=== PATIENT | male | born 1990 | race Native Hawaiian/Other Pacific Islander ===

== ENCOUNTER 2019-01-23 10:23 | Day surgery (SDC) | payer OTHER ==
[2019-01-23] MEDS ORDERED: LACTATED RINGERS 1,000 ML IV ONE ×3 (10:28→17:47)
[2019-01-23] MEDS ORDERED: CEFAZOLIN SODIUM IN 0.9 % NACL 2 GM/100 ML BAG IV ONE (10:56)
--- NOTE | 2019-01-23 11:14 | ANESTHESIA ---
Pre-Anesthesia VS, & Labs - Diagnosis Right ACL tear and meniscus tear - Procedure right ACL reconstruction meniscus repair vs debridement Vital Signs: Temp Pulse Resp BP Pulse Ox 36.7 C 75 12 140/64 H 97 01/23/19 10:28 01/23/19 10:28 01/23/19 10:28 01/23/19 10:28 01/23/19 10:28 Height 5 ft 9 in Weight (kg) 77.11 kg - NPO >8 hours Home Medications and Allergies Home Medications: Ambulatory Orders Meloxicam [Mobic] 15 mg PO DAILY 01/22/19 Acetaminophen [Tylenol Extra Strength] 500 mg PO PRN PRN 01/23/19 Meloxicam [Mobic] 15 mg PO DAILY 01/22/19 Acetaminophen [Tylenol Extra Strength] 500 mg PO PRN PRN 01/23/19 Allergies/Adverse Reactions: Allergies Allergy/AdvReac Type Severity Reaction Status Date / Time No Known Drug Allergies Allergy Verified 01/22/19 13:22 Anes History & Medical History - Anesthetic History Family history of Anesthesia Complications: Denies Family history of Malignant Hyperthermia: Denies - Medical History Cardiovascular: reports: None Pulmonary: reports: None Gastrointestinal: reports: None Urinary: reports: None Neuro: reports: None Musculoskeletal: reports: None Endocrine/Autoimmune: reports: None Blood Disorders: reports: None Skin: reports: None Smoking Status: Never smoker Psychosocial: reports: No issues indicated Exam General: Alert, Oriented x3, Cooperative, No acute distress Dental: WNL Mouth Openin Fingerbreadth Neck Mobility: Normal Mallampati classification: I Thyromental Distance: greater than 6 cm Respiratory: Lungs clear, Normal breath sounds, No respiratory distress, No accessory muscle use Cardiovascular: Regular rate, Normal S1, Normal S2, No murmurs Mental/Cognitive Status: Alert/Oriented X3, Normal for patient Plan Anesthesia Type: General, Femoral Block (right femoral nerve block) Regional Block: Per Surgeon's request for Post Op pain control Consent for Procedure(s) Verified and Reviewed: Yes Code Status: Attempt Resuscitation ASA classification: 1-Healthy patient Is this case an emergency?: No
[2019-01-23] MEDS ORDERED: GLYCOPYRROLATE 1 MG/5 ML VIAL IVP ONE (13:00)
[2019-01-23] MEDS ORDERED: ONDANSETRON 4 MG/2 ML VIAL IVP ONE (13:00)
[2019-01-23] MEDS ORDERED: PROPOFOL 200 MG/20 ML VIAL IVP ONE (13:00)
[2019-01-23] MEDS ORDERED: KETOROLAC 30 MG/ML VIAL IVP ONE (13:00)
[2019-01-23] MEDS ORDERED: LIDOCAINE-MPF 2% 5 ML VIAL IM ONE (13:00)
[2019-01-23] MEDS ORDERED: fentaNYL 250 MCG/5 ML VIAL IVP ONE ×2 (13:00→15:50)
[2019-01-23] MEDS ORDERED: ROCURONIUM 50 MG/5 ML VIAL IVP ONE (13:00)
[2019-01-23] MEDS ORDERED: ACETAMINOPHEN 1,000 MG/100 ML 100 ML IV ONE (13:00)
[2019-01-23] MEDS ORDERED: ESMOLOL 100 MG/10 ML VIAL IVP ONE (13:00)
[2019-01-23] MEDS ORDERED: MIDAZOLAM 2 MG/2 ML VIAL IVP ONE (13:00)
[2019-01-23] MEDS ORDERED: DEXAMETHASONE 4 MG/ML VIAL IVP ONE (13:00)
[2019-01-23] MEDS ORDERED: BUPIVACAINE 0.25% PF 30 ML VIAL ONE (13:17)
[2019-01-23] MEDS ORDERED: EPINEPHrine 1 MG/ML AMP ONE (13:17)
[2019-01-23] MEDS ORDERED: EPINEPHrine 1 MG/ML AMP IR ONE (14:30)
[2019-01-23] MEDS ORDERED: BUPIVACAINE 0.25% PF 30 ML VIAL SUBQ ONE ×2 (15:39→16:50)
[2019-01-23] MEDS ORDERED: HYDROmorphone 1 MG/ML SYRINGE IVP ONE (15:50)
[2019-01-23] MEDS ORDERED: METOPROLOL 5 MG/5 ML VIAL IVP ONE (15:50)
[2019-01-23] MEDS ORDERED: oxyCODONE 5 MG TABLET PO PRN (17:15)
[2019-01-23] MEDS ORDERED: ONDANSETRON 4 MG/2 ML VIAL IVP PRN (17:15)
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
[2019-01-23] MEDS ORDERED: oxyCODONE 5 MG TABLET ONE (17:53)
[2019-01-23 18:21] VITALS: BP 150/69
== END 2019-01-23 10:24 | disposition home or self-care (01) ==
LOC: SDS 10:23
PROVIDERS: ATTEND Orthopaedic Surgery
PROC: 0MRN47Z Replacement of Right Knee Bursa and Ligament with Autologous Tissue Substitute, Percutaneous Endoscopic Approach (ICD-10-PCS; 2019-01-23)
PROC: 0LBQ0ZZ Excision of Right Knee Tendon, Open Approach (ICD-10-PCS; 2019-01-23)
PROC: 0SQC4ZZ Repair Right Knee Joint, Percutaneous Endoscopic Approach (ICD-10-PCS; principal; 2019-01-23 12:00)
DX: S83.211A Bucket-handle tear of medial meniscus, current injury, right knee, initial encounter (principal); S83.511A Sprain of anterior cruciate ligament of right knee, initial encounter